=== PATIENT | female | born 1975 | race American Indian/Alaskan Native ===

== ENCOUNTER 2018-12-24 22:42 | Emergency (ER) | payer OTHER ==
[2018-12-24 22:54] VITALS: BP 153/92
[2018-12-25] MEDS ORDERED: IBUPROFEN PO ONE (01:37)
--- NOTE | 2018-12-25 01:39 | Emergency Department Report ---
Minor Respiratory - HPI Chief Complaint: Upper Respiratory Infection Stated Complaint: COUGH, FATIGUE Time Seen by Provider: 12/25/18 01:17 Duration: 5 Days Severity: mild Minor Respiratory: Yes Cough, No Rhinorrhea, No Sore Throat, No Ear Pain, No Sick Contacts, No Hemoptysis, No Shortness of Breath, No Fever Other History: 42 year old -[place] female reports to the emergency room with a productive cough and body aches, nausea, mild dizziness and fatigue. Patient reports it she was seen on Monday at the doctor and they placed her on azithromycin and Tessalon Perles reported that she had an ear infection. Patient has taken 1 dose of azithromycin. Patient has not taking the Tessalon Perles for cough. Patient reports she is only taking Tylenol for her body aches. ED Review of Systems ROS: Stated complaint: COUGH, FATIGUE Other details as noted in HPI Constitutional: other (fatigue). denies: chills, fever Eyes: denies: eye pain, eye discharge, vision change ENT: denies: ear pain, throat pain Respiratory: cough Cardiovascular: denies: chest pain, palpitations Endocrine: no symptoms reported Gastrointestinal: nausea (after taking a dose of azithromycin) Genitourinary: denies: urgency, dysuria, discharge Musculoskeletal: myalgia. denies: back pain, joint swelling, arthralgia Skin: denies: rash, lesions Neurological: denies: headache, weakness, paresthesias Psychiatric: denies: anxiety, depression Hematological/Lymphatic: denies: easy bleeding, easy bruising ED Past Medical Hx - Past Medical History Previous Medical History?: No - Surgical History Past Surgical History?: Yes Additional Surgical History: x2 - Social History Smoking Status: Never Smoker Substance Use Type: None - Medications Home Medications: Home Medications Medication Instructions Recorded Confirmed Last Taken Type Amoxicillin [Trimox CAP] 500 mg PO Q8H #21 capsule 12/25/18 Unknown Rx Ibuprofen [Motrin 600 MG tab] 600 mg PO Q8H #30 tablet 12/25/18 Unknown Rx Minor Respiratory Exam - Exam General: Vital signs noted. No distress. Alert and acting appropriately. HEENT: Yes Moist Mucous Membranes, No Pharyngeal Erythema, No Pharyngeal Exudates, No Rhinorrhea, No Conjuctival Injection, No Frontal Tenderness, No Maxillary Tenderness Neck: Yes Supple, No Adenopathy Lungs: Yes Good Air Exchange, No Wheezes, No Ronchi, No Stridor, No Cough, No Labored Respirations, No Retractions, No Use of Accessory Muscles, No Other Abnormal Lung Sounds Heart: Yes Regular (87 bpm by this provider), No Murmur Abdomen: Yes Normal Bowel Sounds, No Tenderness, No Peritoneal Signs Skin: No Rash, No Edema Neurologic: Alert and oriented, no deficits. Musculoskeletal: Unremarkable. ED Course Vital Signs 12/24/18 22:48 Temperature 99.4 F Pulse Rate 111 H Respiratory 18 Rate Blood Pressure 153/92 O2 Sat by Pulse 97 Oximetry Critical care attestation.: If time is entered above; I have spent that time in minutes in the direct care of this critically ill patient, excluding procedure time. ED Disposition Clinical Impression: URI, acute Disposition: [id number] TO HOME OR SELFCARE Is pt being admited?: No Does the pt Need Aspirin: No Condition: Stable Instructions: Upper Respiratory Infection (ED) Additional Instructions: Complete antibiotics as prescribed. Ibuprofen as needed for pain management. Increase her water intake while taking ibuprofen and antibiotics. Please take your Tessalon Perles as prescribed by her other provider. Please take Claritin 10 mg daily for the next 2 weeks. Follow-up with a primary care provider if symptoms persist or gets worse. Prescriptions: Ibuprofen [Motrin 600 MG tab] 600 mg PO Q8H #30 tablet Amoxicillin [Trimox CAP] 500 mg PO Q8H #21 capsule Referrals: ANDRE STEELE MD [Primary Care Provider] - 3-5 Days
== END 2018-12-25 02:15 | disposition home or self-care (01) ==
LOC: ED 22:42
DX: J06.9 Acute upper respiratory infection, unspecified (principal); M79.10 Myalgia, unspecified site
CPT/HCPCS: 99282